=== PATIENT | female | born 1960 | race Caucasian/White ===

== ENCOUNTER 2024-05-02 13:05 | Outpatient (AMB) | payer MEDICARE, SELFPAY ==
--- NOTE | 2024-05-02 13:08 | MHC.OFFVIS ---
Vital Signs 05/02/24 13:16 Height 5 ft 1 in Weight 141 lb BMI 26.6 Intake Visit Reasons: rectal prolapse Intake Note: This patient presents for rectal prolapse. Pt c/o; no complaints. 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 Accompanied by: Self / Same As Patient Allergies sulfamethoxazole [From Bactrim] Allergy (Severe, Verified 05/02/24 13:17) Hives trimethoprim [From Bactrim] Allergy (Severe, Verified 05/02/24 13:17) Hives morphine Adverse Reaction (Severe, Verified 05/02/24 13:17) Sensitivity bupropion [From Wellbutrin] Adverse Reaction (Verified 05/02/24 13:17) Suicidal thoughts Pit fruit Allergy (Severe, Uncoded 05/02/24 13:17) Sensitivity to raw fruits Medication List - Last Reconciled 05/02/24 by Shlomo Meneses MD atorvastatin 40 mg PO DAILY ibuprofen 200 mg PO Q6H PRN ibuprofen (Advil) 200 mg PO Q6H PRN insulin glargine (Lantus Solostar U-100 Insulin) 30 units subcut BID lansoprazole 30 mg PO DAILY levothyroxine 75 mcg PO DAILY liothyronine 25 mcg PO DAILY lisinopril 2.5 mg PO DAILY metoprolol tartrate 25 mg PO BID sertraline 200 mg PO DAILY trazodone 150 mg PO DAILY HPI HPI rectal prolapse: Details: [age] year old female referred for a rectal prolapse. She says that her rectum has been ?falling down? for a few years now. She feels that this has been getting worse. She denies any significant pain when her rectum prolapses but she says that this sometimes seems to be ?big? almost like the size of a softball. She says she often has to push this rectum back into the anus She also describes leakage of stool currently. This happens especially if she has non solid stools She denies any abdominal surgeries in the past. She denies any perianal surgeries. She is an ex-smoker. [facility] Medical History Abnormal cervical Papanicolaou smear (~03/28/03) Urinary incontinence (~05/09/03) Rectal prolapse Gastroesophageal reflux disease (~06/14/01) Coronary atherosclerosis (~07/26/01) Acute myocardial infarction (12/08/08) Benign essential hypertension Insomnia Tobacco user (~05/09/03) Panic disorder without agoraphobia (~06/03/03) Recurrent major depressive episodes (~06/12/03) Major depressive disorder Mixed hyperlipidemia (~02/06/02) Uncontrolled type 2 diabetes mellitus with hyperglycemia Acquired hypothyroidism Primary malignant neoplasm of thyroid gland (~2008) Surgical History History of partial hysterectomy (~03/13/03) History of thyroid surgery (~03/04/09) Family History Mother Disorder of thyroid gland Osteoporosis Hypertensive disorder Brother Hypertensive disorder Father Malignant neoplastic disease Hypertensive disorder Arterial aneurysm Paternal Uncle Arterial aneurysm Maternal Grandfather Malignant neoplastic disease Heart disease Sister Osteoporosis Hyperparathyroidism Family/Other Colorectal cancer Family/Other Colorectal cancer Social History Alcohol intake: current Alcohol intake frequency: a few times a month Patient Tobacco Use Status: Former Tobacco user Years Smoked: 40 e-Cigarette/Vaping Use: Never Used Use of substances other than those prescribed or required for medical reasons: No Review of Systems Const Denies chills and Denies fever(s) Card Denies chest pain, Denies dyspnea and Denies dyspnea on exertion Resp Denies cough, Denies dyspnea and Denies dyspnea on exertion GI Denies hematochezia, Denies change in bowel habits and Reports fecal incontinence Denies hematuria Musc Denies back pain and Denies limited range of motion Neuro Denies focal weakness and Denies convulsions Psych Denies depression and Denies mood swings Physical Exam Const General: comfortable and no acute distress Orientation/consciousness: patient oriented x3 Neck Neck: Yes no lymphadenopathy Resp Auscultation: clear to auscultation bilaterally Cardio Rhythm: regular rhythm GI Other: Rectal exam shows a gaping anal orifice, prolapse of the rectum reproducible when she was asked to strain and push Palpation (GI): Soft to palpation, nontender and no guarding Neuro General: patient oriented x3 Office Procedures Anoscopy She was in verónica-knife position. The anoscope was gently inserted. A full exam of the anal canal was done. The rectum appeared to be very redundant but there were no erythematous or inflammatory changes. There was no lesions seen there was no bleeding. She had a very lax sphincter tone. She practically had no resting pressure with a very slight squeeze pressure. [id number] Assessment & Plan Assessment & Plan (1) Rectal prolapse: Code(s): K62.3 - Rectal prolapse Category: Medical Plan: She appears to have significant rectal prolapse. This is reproducible to some extent. She does describe this to be up to almost a softball sized frequently. I explained to her the option of proceeding with laparoscopic rectopexy with possible resection of the sigmoid. I explained the risks of bleeding, infections, bowel injury, recurrence among others. I emphasized to her that this will not help with the incontinence as she practically has no sphincter tone anymore. I have order for a CAT scan to check her pelvic anatomy . She says she is due for a colonoscopy this year so I told her that she should call her primary care physician to have this scheduled I will see her in the office after her CT scan reviewed this with her. Orders: Orders CT abdomen pelvis wo IV con Today K62.3 - Rectal prolapse Coding Level of Care Code New Pt Level 3 (50988) Diagnoses Rectal prolapse K62.3 CPT Codes Details - CPT: 03857-[id number] ([id number])
[2024-05-02 13:16] VITALS: BMI 26.6
== END 2024-05-02 13:27 | disposition home or self-care (01) ==
PROVIDERS: PCP Family Medicine; Referring Provider Family Medicine; Visit Provider Surgery
DX: K62.3 Rectal prolapse (principal)
CPT/HCPCS: 46600; 99203

== ENCOUNTER → 2024-05-02 13:05 | Outpatient (BNVA) | payer MEDICARE, SELFPAY | PROVIDERS: PCP Family Medicine; Referring Provider Family Medicine; Visit Provider Surgery | DX: K62.3 Rectal prolapse (principal) | CPT/HCPCS: 46600; 99202 ==